=== PATIENT | male | born 1990 | race Two or more races ===

== ENCOUNTER 2016-09-26 13:34 | Emergency (ER) | payer MEDICAID ==
[~2016-09-26] VITALS: Ht 157.5 cm; Wt 77.0 kg
[2016-09-26 15:20] VITALS: BP 127/85
== END 2016-09-26 15:22 | disposition home or self-care (01) ==
LOC: ER 14:09
DX: J06.9 Acute upper respiratory infection, unspecified (principal)
CPT/HCPCS: 99283